=== PATIENT | male | born 1995 | race Caucasian/White ===

== ENCOUNTER → 2020-04-17 10:53 | Outpatient (CLI) | payer OTHER, SELFPAY ==
[2020-04-17 14:44] LABS: NATERA MAILED SPECIMEN
== END ==
PROVIDERS: Referring Provider Obstetrics & Gynecology; Visit Provider Obstetrics & Gynecology
DX: Z31.440 Encounter of male for testing for genetic disease carrier status for procreative management (principal)
CPT/HCPCS: 36415